=== PATIENT | female | born 1995 | race Caucasian/White ===

== ENCOUNTER 2018-03-10 00:40 | Emergency (ER) | payer OTHER ==
[~2018-03-10] VITALS: Ht 149.9 cm; Wt 54.1 kg
[2018-03-10] MEDS ORDERED: CITA40TA22 PO (01:01)
[2018-03-10] MEDS ORDERED: HYDROcodone/acetaminophen 10/325mg tab PO ONE (02:35)
[2018-03-10] MEDS ORDERED: sulfamethoxazole/trimethoprim DS (800/160mg) tablet PO ONE (02:35)
[2018-03-10] MEDS ORDERED: TETanus/Pertussis (Acell)/Diphther VAC/PF (Tdap-Adult) 0.5ml syringe IMVAC ONE (02:35)
[2018-03-10] MEDS ORDERED: ondansetron 4mg rapidly disintigrating tab PO ONE (02:35)
[2018-03-10] MEDS ORDERED: ONDA4TAB9 PO (02:38)
[2018-03-10] MEDS ORDERED: HYDR-3965 PO (02:38)
[2018-03-10] MEDS ORDERED: CEPH-572 PO (02:38)
[2018-03-10 02:49] VITALS: BP 127/73
== END 2018-03-10 03:21 | disposition home or self-care (01) ==
LOC: ER 00:41
DX: L03.116 Cellulitis of left lower limb (principal); L03.011 Cellulitis of right finger; Z90.89 Acquired absence of other organs; Z88.0 Allergy status to penicillin; Z88.1 Allergy status to other antibiotic agents; Z91.030 Bee allergy status; Z79.899 Other long term (current) drug therapy
CPT/HCPCS: 90471; 90715; 99284

== ENCOUNTER 2019-10-10 18:10 | Emergency (ER) | payer OTHER ==
[~2019-10-10] VITALS: Ht 149.9 cm; Wt 52.2 kg
[~2019-10-10 18:10] MED LIST: CITA40TA22 PO
[2019-10-10 18:23] VITALS: BP 127/81
[2019-10-10] MEDS ORDERED: traMADol 50MG tablet PO ONE (19:35)
== END 2019-10-10 20:21 | disposition home or self-care (01) ==
LOC: ER 18:11
DX: M79.641 Pain in right hand (principal); Z90.89 Acquired absence of other organs; Z88.0 Allergy status to penicillin; Z88.1 Allergy status to other antibiotic agents; Z79.899 Other long term (current) drug therapy; W22.01XA Walked into wall, initial encounter; Y93.89 Activity, other specified; Y92.89 Other specified places as the place of occurrence of the external cause; Y99.9 Unspecified external cause status
CPT/HCPCS: 29280; 73130; 99283

== ENCOUNTER 2023-06-16 21:36 | Emergency (ER) | payer MEDICAID, OTHER ==
[~2023-06-16] VITALS: Ht 149.9 cm; Wt 59.5 kg
[2023-06-16 21:54] LABS: BASOPHILS # (AUTO) 0.1 X10'3 (0-0.2); BASOPHILS % (AUTO) 0.7 % (0-1); EOSINOPHILS # (AUTO) 0.5 X10'3 (0-0.9); EOSINOPHILS % (AUTO) 4.5 % (0-6); HEMATOCRIT 39.3 % (35.0-45.0); HEMOGLOBIN 13.3 g/dl (12.0-16.0); LYMPHOCYTES # (AUTO) 3.6 X10'3 (1.1-4.8); LYMPHOCYTES % (AUTO) 31.8 % (21-51); MEAN CORPUSCULAR HEMOGLOBIN 29.9 PG (27.0-31.0); MEAN CORPUSCULAR HGB CONC 33.8 g/dL (33.0-36.5); MEAN CORPUSCULAR VOLUME 88.5 FL (78-98); MEAN PLATELET VOLUME 7.4 FL (7.4-10.4); MONOCYTES # (AUTO) 1.2 X10'3 (0-0.9); MONOCYTES % (AUTO) 10.7 % (2-12); NEUTROPHILS # (AUTO) 5.9 X10'3 (1.8-7.7); NEUTROPHILS % (AUTO) 52.3 % (42-75); PLATELET COUNT 333 X10'3 (140-440); RED BLOOD COUNT 4.44 X10'6 (4.20-5.60); RED CELL DISTRIBUTION WIDTH 12.2 % (11.5-14.5); WHITE BLOOD COUNT 11.4 X10'3 (4.5-11.0)
[2023-06-16 22:06] LABS: ALANINE AMINOTRANSFERASE 22 U/L (12-78); ALBUMIN 3.8 G/DL (3.4-5.0); ALKALINE PHOSPHATASE 74 IU/L (46-116); ANION GAP 6 (8-16); ASPARTATE AMINO TRANSFERASE 24 U/L (10-37); BILIRUBIN,TOTAL 0.2 MG/DL (0.1-1.0); BLOOD UREA NITROGEN 9 MG/DL (7-18); BUN/CREATININE RATIO 12.2 (10.0-20.0); CALCIUM 8.8 MG/DL (8.5-10.1); CHLORIDE 101 MMOL/L (99-107); CREATININE 0.74 MG/DL (0.40-0.90); GLUCOSE 87 MG/DL (70-104); POTASSIUM 3.2 MMOL/L (3.5-5.1); SODIUM 135 MMOL/L (135-145); TOTAL CARBON DIOXIDE 27.7 MMOL/L (24-32); TOTAL PROTEIN 7.6 G/DL (6.4-8.2); eCRCL 78 ML/MIN; eGFR > 90 ML/MIN
[2023-06-16 22:10] LABS: BILIRUBIN,URINE NEGATIVE (Neg); CLARITY,URINE CLEAR (Clear); COLOR,URINE YELLOW (Yellow); GLUCOSE, URINE NEGATIVE (Neg); KETONES,URINE NEGATIVE (Neg); LEUKOCYTE ESTERASE ,URINE NEGATIVE (Neg); NITRITES, URINE NEGATIVE (Neg); OCCULT BLOOD,URINE NEGATIVE (Neg); PROTEIN,URINE NEGATIVE (Neg); UROBILINOGEN,URINE 0.2 E.U/dL (0.2-1.0)
[2023-06-16 22:13] LABS: URINE HCG POSITIVE (NEG)
[2023-06-16 22:13] LABS: LIPASE 53 U/L (16-77); PRO BRAIN NATRIURETIC PEPTIDE 104 PG/ML (0-125)
[2023-06-16 22:28] LABS: UA COLLECTION TYPE CLN CATCH MIDSTREAM
[2023-06-16 23:47] LABS: BETA HCG,QUANTITATIVE 2507 mIU/ml
[2023-06-17 00:24] VITALS: BP 119/78; PULSE 89; RESP 14; O2SAT 100
== END 2023-06-17 00:26 | disposition home or self-care (01) ==
LOC: ER 21:37
DX: Z34.91 Encounter for supervision of normal pregnancy, unspecified, first trimester (principal); Z88.0 Allergy status to penicillin; Z91.018 Allergy to other foods; Z88.1 Allergy status to other antibiotic agents; Z79.899 Other long term (current) drug therapy
CPT/HCPCS: 36415; 76801; 80053; 81003; 81025; 83690; 83880; 84484; 84702; 85025; 93005; 99284